=== PATIENT | male | born 1980 | race Caucasian/White ===

== ENCOUNTER 2020-01-08 19:05 | Emergency (ER) | payer BC ==
[~2020-01-08] VITALS: Ht 175.3 cm; Wt 77.1 kg
[2020-01-08 19:10] VITALS: BP 151/110
--- NOTE | 2020-01-08 19:52 | NUR ---
PT AMBULATED TO ER BED 02
--- NOTE | 2020-01-08 20:11 | NUR ---
XR AT BEDSIDE.
[2020-01-08 20:16] LABS: BASOPHILS # (AUTO) 0.1 K/uL (0.00-0.22); BASOPHILS % (AUTO) 1.5 % (0.0-2.0); EOSINOPHILS # (AUTO) 0.1 K/uL (0-0.4); EOSINOPHILS % (AUTO) 1.9 % (0.0-4.0); HEMATOCRIT 43.2 % (36-52); HEMOGLOBIN 14.8 g/dL (12.0-18.0); LYMPHOCYTES # (AUTO) 1.8 K/uL (2.0-11.5); LYMPHOCYTES % (AUTO) 34.4 % (20.5-51.1); MEAN CORPUSCULAR HEMOGLOBIN 33 pg (27-31); MEAN CORPUSCULAR HGB CONC 34 g/dL (33-37); MEAN CORPUSCULAR VOLUME 95.6 fL (80-94); MONOCYTES # (AUTO) 0.4 K/uL (0.8-1.0); MONOCYTES % (AUTO) 7.6 % (1.7-9.3); NEUTROPHILS # (AUTO) 2.9 K/uL (1.8-7.7); NEUTROPHILS % (AUTO) 54.6 % (42.2-75.2); PLATELET COUNT (AUTO) 221 K/uL (140-450); RED BLOOD CELL COUNT(AUTO) 4.52 MIL/uL (4.20-6.10); RED CELL DISTRIBUTION WIDTH 13.3 % (11.6-13.7); WHITE BLOOD COUNT (AUTO) 5.2 K/uL (4.8-10.8)
[2020-01-08 20:28] LABS: ALBUMIN 4.5 g/dL (3.4-5.0); CARBON DIOXIDE 28.8 mmol/L (21-32); CREATININE 1.1 mg/dL (0.6-1.3); POTASSIUM 3.8 mmol/L (3.5-5.1); TOTAL BILIRUBIN 0.5 mg/dL (0.0-1.0)
--- NOTE | 2020-01-08 20:30 | NUR ---
40 Y/O MALE C/O CHEST PAIN X 3 DAYS THATS INTERMITTENT. NON RADAITNG AND PAIN IS LOCTED ON LEFT SIDE OF CHEST. HEART SOUNDS S1S2 PRESENT. DENIES ANY SOB,N,V,D. NO SIGNS OF DIAPHORESIS, SKIN IS DRY AND WARM TO TOUCH. VSS. LUNG SOUNDS CLEAR ALL THROUGHOUT. NO RESP DISTRESS OR ANY SIGNS OF DISTRESS NOTED. RATES PAIN 7/10 AND DESCRIBES IT PRESSURE, TIGHTNESS. NKA. PMH: DM TYPE 2.
[2020-01-08 20:47] VITALS: BP 147/91
== END 2020-01-08 20:47 | disposition home or self-care (01) ==
LOC: MED 19:05
DX: R07.9 Chest pain, unspecified (principal); E11.9 Type 2 diabetes mellitus without complications
CPT/HCPCS: 36415; 71045; 80053; 84484; 85025; 93005; 99285; Q0092